=== PATIENT | female | born 1975 | race Caucasian/White ===

== ENCOUNTER 2018-12-07 10:45 | Outpatient (RCR) | payer OTHER ==
[~2018-12-07 10:45] MED LIST: CIPRO; CIPRO 250MG TA250 MG; FLOMAX 0.40.4 MG/CAP PO; MICARDIS40 MG PO; PERC2.5TAB; PERCOCET; ZOFRAN 4MG T4 MG/TAB
== END 2019-02-02 | disposition home or self-care (01) ==
LOC: WSPT
DX: E88.2 Lipomatosis, not elsewhere classified (principal); G89.4 Chronic pain syndrome

== ENCOUNTER 2021-06-01 08:46 | Outpatient (RCR) | payer OTHER | END 2021-06-21 08:37 | disposition home or self-care (01) | LOC: WSPT 08:46 | DX: M54.9 Dorsalgia, unspecified (principal) ==

== ENCOUNTER 2024-08-11 15:36 | Emergency (ER) | payer SELFPAY ==
[~2024-08-11] VITALS: Ht 175.3 cm; Wt 127.3 kg
[2024-08-11 15:41] VITALS: TEMP 98.6
[2024-08-11 19:07] LABS: BASO % 0.3 % (0.0-2.0); EOS % 0.4 % (0.0-4.0); GRAN # 5.2 K/mm3 (1.4-6.5); GRAN % 68.8 % (42.2-75.2); HEMOGLOBIN 14.4 g/dl (12.5-16.0); LYMPH # 1.9 K/mm3 (1.2-3.4); LYMPH % 25.2 % (20.0-51.0); MEAN CELL VOLUME 93 fl (80.0-100.0); MEAN CORPUSCULAR HEMOGLOBIN 32 pg (27-31); MEAN CORPUSCULAR HGB CONC 34 g/dl (33.0-37.0); MEAN PLATELET VOLUME 9.5 fl (7.4-10.4); MONO # 0.4 K/mm3 (0.1-0.6); MONO % 4.9 % (1.7-9.3); PLATELET COUNT 294 K/mm3 (130-400); RED BLOOD COUNT 4.51 M/mm3 (4.10-5.30); REDCELL DISTRIBUTION WIDTH-CV 13.1 % (11.5-14.5)
[2024-08-11 19:23] LABS: ALBUMIN 3.5 g/dL (3.5-5.0); BILIRUBIN,TOTAL 0.6 mg/dL (0.2-1.2); CALCIUM 9.7 mg/dL (8.4-10.2); CREATININE, serum 0.88 mg/dL (0.57-1.11); POTASSIUM 3.9 mEq/L (3.5-4.5)
[2024-08-11 19:29] LABS: TROPONIN-I 0.03 ng/mL (0.00-0.033)
[2024-08-11] MEDS ORDERED: Iohexol 300 - 100 ML VIAL IV ONE (20:03)
[2024-08-11 21:01] VITALS: BP 138/96; PULSE 110
== END 2024-08-11 21:01 | disposition home or self-care (01) ==
LOC: COL.ER 15:36
PROVIDERS: Nurse Practitioner Primary Care
DX: R07.9 Chest pain, unspecified (principal); F17.200 Nicotine dependence, unspecified, uncomplicated
CPT/HCPCS: Q9967

== ENCOUNTER 2024-08-23 11:03 | Day surgery (SDC) | payer SELFPAY ==
[~2024-08-23] VITALS: Ht 175.3 cm; Wt 137.7 kg
[2024-08-23] VITALS (255 sets, daily range): BP systolic 117–153; BP diastolic 66–102; PULSE 73–110; TEMP 97.7–98.3; O2SAT 89–100
[~2024-08-23 11:03] MED LIST changes: -MICARDIS40 MG PO; +MICARDIS80 MG PO
[2024-08-23] MEDS ORDERED: 1/2 NS 1,000 ML IV SCH ×2 (11:30→16:30)
[2024-08-23 12:09] LABS: HEMATOCRIT 38.2 % (37.0-47.0); HEMOGLOBIN 13.1 g/dl (12.5-16.0); MEAN CELL VOLUME 92 fl (80.0-100.0); MEAN CORPUSCULAR HEMOGLOBIN 32 pg (27-31); MEAN CORPUSCULAR HGB CONC 34 g/dl (33.0-37.0); PLATELET COUNT 280 K/mm3 (130-400); RED BLOOD COUNT 4.16 M/mm3 (4.10-5.30); REDCELL DISTRIBUTION WIDTH-CV 13.3 % (11.5-14.5)
[2024-08-23 12:27] LABS: INR 1.2 (0.8-3.0); PROTHROMBIN TIME 12.7 SECONDS (9.7-12.8)
[2024-08-23 12:28] LABS: CALCIUM 9.3 mg/dL (8.4-10.2); CREATININE, serum 0.86 mg/dL (0.57-1.11); POTASSIUM 3.6 mEq/L (3.5-4.5)
[2024-08-23 12:30] LABS: PARTIAL THROMBOPLASTIN TIME 31.8 SECONDS (26.0-37.0)
[2024-08-23] MEDS ORDERED: IMDUR 30MG30 MG/TAB PO (12:35)
[2024-08-23] MEDS ORDERED: TIROSINT50 MC1 PO (12:36)
[2024-08-23] MEDS ORDERED: LIPITOR 40MG TA40 MG PO (12:36)
[2024-08-23] MEDS ORDERED: NIRAVAM0.5 MG PO (12:37)
[2024-08-23] MEDS ORDERED: LYRICA 50MG CAP50 MG PO (12:37)
[2024-08-23] MEDS ORDERED: TOPROL XL 25MG25 MG PO (12:38)
[2024-08-23] MEDS ORDERED: D3-5050000 IU PO (12:43)
[2024-08-23] MEDS ORDERED: ASPIRIN 81M81 MG/TA2 PO (12:43)
[2024-08-23] MEDS ORDERED: NITROSTAT0.4 MG/TAB SL (12:44)
[2024-08-23] MEDS ORDERED: ZANAFLEX2 MG PO (12:44)
[2024-08-23] MEDS ORDERED: ULTRAM 50MG TAB50 MG PO (12:45)
[2024-08-23] MEDS ORDERED: Verapamil 2.5 MG/ML 2 ML VIAL IA SCH (13:49)
[2024-08-23] MEDS ORDERED: Nitroglycerin 100 MCG/ML (Cath Lab) 10 ML VIAL IA SCH (13:50)
[2024-08-23] MEDS ORDERED: Heparin 1,000 UNITS/ML 10 ML Multi-Dose VIAL IA SCH (13:51)
[2024-08-23] MEDS ORDERED: Heparin 1,000 UNITS/ML 10 ML Multi-Dose VIAL IV SCH (13:52)
[2024-08-23] MEDS ORDERED: Midazolam 2 MG/2 ML VIAL IV SCH ×2 (13:58→15:45)
[2024-08-23] MEDS ORDERED: Bivalirudin 250 MG in NS 50 ML IV SCH ×2 (14:37→15:12)
[2024-08-23] MEDS ORDERED: Nitroglycerin/D5W 250 ML IV SCH ×2 (14:42→16:30)
[2024-08-23] MEDS ORDERED: Nitroglycerin 100 MCG/ML (Cath Lab) 10 ML VIAL INCOR SCH ×3 (15:10→15:48)
[2024-08-23] MEDS ORDERED: Ticagrelor 90 MG TAB PO SCH ×2 (15:44→21:00)
[2024-08-23] MEDS ORDERED: Bisacodyl 5 MG TAB PO PRN (15:45)
[2024-08-23] MEDS ORDERED: fentaNYL 50 MCG/ML 2 ML VIAL IV SCH (15:46)
[2024-08-23] MEDS ORDERED: Iohexol 350 - 100 ML VIAL INCOR ONE (15:47)
--- NOTE | 2024-08-23 16:13 | NUR ---
Lon is transferred to ICU [address] Zaidi. 4 drug eluting stents were placed. Please see merge document in paper chart for size and placement of these stents. Lon is awake and alert, tearful, with reg and unlabored respirations. She does continue to report some chest pressure, but states it is much better than it was during procedure. BS report and handoff of care to Ree RN in ICU.
[2024-08-23] MEDS ORDERED: tiZANidine 4 MG TAB PO PRN (16:30)
[2024-08-23] MEDS ORDERED: Acetaminophen 325 MG TAB PO PRN (16:30)
[2024-08-23] MEDS ORDERED: traMADol 50 MG TAB PO SCH (16:30)
[2024-08-23] MEDS ORDERED: Ondansetron 4 MG/2 ML VIAL IV PRN (16:30)
--- NOTE | 2024-08-23 19:15 | NUR ---
Received report from DARLINE Keenan. Pt is alert and resting in bed with family at bedside. Pt's vitals are stable at this time. Nitro and IVF's are running at this time. the radial band is on with all of the air in the band at this time. Will continue with pt care.
[2024-08-23] MEDS ORDERED: ALPRAZolam 0.5 MG TAB PO SCH (21:00)
[2024-08-23] MEDS ORDERED: Pregabalin 50 MG CAP PO SCH (21:00)
[2024-08-23] MEDS ORDERED: Atorvastatin 80 MG TAB PO SCH (21:00)
[2024-08-23] MEDS ORDERED: Melatonin 3 MG TAB PO PRN (21:00)
[2024-08-24] VITALS (539 sets, daily range): BP systolic 130–146; BP diastolic 84–102; PULSE 78–108; TEMP 98; O2SAT 89–100
[2024-08-24 05:23] LABS: BASO % 0.1 % (0.0-2.0); EOS % 0.5 % (0.0-4.0); GRAN # 5.6 K/mm3 (1.4-6.5); GRAN % 76.9 % (42.2-75.2); HEMOGLOBIN 12.2 g/dl (12.5-16.0); LYMPH # 1.3 K/mm3 (1.2-3.4); LYMPH % 17.6 % (20.0-51.0); MEAN CELL VOLUME 90 fl (80.0-100.0); MEAN CORPUSCULAR HEMOGLOBIN 32 pg (27-31); MEAN CORPUSCULAR HGB CONC 36 g/dl (33.0-37.0); MEAN PLATELET VOLUME 9.2 fl (7.4-10.4); MONO # 0.3 K/mm3 (0.1-0.6); MONO % 4.6 % (1.7-9.3); PLATELET COUNT 257 K/mm3 (130-400); RED BLOOD COUNT 3.83 M/mm3 (4.10-5.30); REDCELL DISTRIBUTION WIDTH-CV 13.3 % (11.5-14.5)
[2024-08-24 05:25] LABS: HEMATOCRIT 34.3 % (37.0-47.0)
[2024-08-24 05:44] LABS: CALCIUM 8.9 mg/dL (8.4-10.2); CREATININE, serum 0.82 mg/dL (0.57-1.11); POTASSIUM 3.5 mEq/L (3.5-4.5)
--- NOTE | 2024-08-24 05:52 | NUR ---
Pt had an uneventful night. Pt's vitals were stable throughout the night. Was able to get the TR band off around 0100 this morning. All 14 mls of air was removed over time by 0000. Pt denies CP and had a headache for about half of the night. Tylenol and tramadol was given and that didn't seem to help much. Nitro was stopped and the pt's headache started to go away. Pt has been getting up to the toilet frequently throughout the night. 1/2 NS is now off. So no drips and IVF's are running at this time. Pt denies CP and headache now. Pt is currently resting in bed with the call light within reach. Will give report to day shift nurse.
--- NOTE | 2024-08-24 08:30 | NUR ---
Patient awake and resting in bed; A&0 X 4 and in no distress. Denies any chest pain but does say that she just feels tired. VS stable and call light left within reach.
[2024-08-24] MEDS ORDERED: Influenza Virus Vaccine, Trivalent '24-25 0.5 ML SYRINGE IM SCH (09:00)
[2024-08-24] MEDS ORDERED: Telmisartan 80 MG **** subs to Losartan 100 MG PO SCH (09:00)
[2024-08-24] MEDS ORDERED: Isosorbide Mononitrate CR (24-HR) 30 MG TAB PO SCH (09:00)
[2024-08-24] MEDS ORDERED: amLODIPine 5 MG TAB PO SCH (09:00)
[2024-08-24] MEDS ORDERED: Losartan 50 MG TAB PO SCH (09:00)
--- NOTE | 2024-08-24 09:26 | NUR ---
rehabilitation worker spoke with Dr. Zaidi who will discharge pt today. MARS met with pt and her son, Alf [phone] to discuss intake information. She reports to live with her two sons, Alf and Abner [phone] in [place]. Pt sees LILIBETH Bassett for PCP needs and obtains medications from [facility] with no difficulties. She does not have health insurance and reports that she does picker packer all prescibed meds. SW provided [facility] card for her. Pt reports having gotten an FAA application and she has a CM in [place] that she will follow-up with to discuss Medicaid. Pt is independent with ADLS and uses a CPAP for DME. Pt does not have a DPOA-HC and was provided a copy as she states her other child is special needs. Discharge Plan: home
--- NOTE | 2024-08-24 09:41 | NUR ---
Staff gave patient handout that reviewed risk factors for heart disease. Covered applicable modifiable risk factors including the following: tobacco cessation, HTN, hyperlipidemia, diabetes, overweight/obesity, sedentary lifestyle, and stress/depression. Patient and staff also review unmonifiable risk factors that have contributed to CVD- stents. Patient verbalized understanding. Referral sent to [facility] with patient's permission.
[2024-08-24] MEDS ORDERED: BRILINTA90 MG PO (10:06)
[2024-08-24] MEDS ORDERED: NORVASC 5MG5 MG/TAB PO (10:07)
[2024-08-24] MEDS ORDERED: LIPITOR 80MG80 MG PO (10:07)
--- NOTE | 2024-08-24 10:33 | NUR ---
Initial visit attempt: Patient was with nurse but knew Library Director was available and thanked her for stopping by and offering God's blessings. Library Director left her card with Lon.
--- NOTE | 2024-08-24 12:00 | NUR ---
Discharge packet reviewed with patient and family. All questions and concerns addressed at this time. INT discontinued and patient escorted out to the ER entrance and departed with her .
== END 2024-08-24 12:00 | disposition home or self-care (01) ==
LOC: COL.CAR 11:03 → ICU 16:00 → COL.CAR 08-24 12:00
PROVIDERS: Internal Medicine Cardiovascular Disease
DX: I25.10 Atherosclerotic heart disease of native coronary artery without angina pectoris (principal); I10 Essential (primary) hypertension; G47.33 Obstructive sleep apnea (adult) (pediatric); Z79.899 Other long term (current) drug therapy; Z79.82 Long term (current) use of aspirin; I25.82 Chronic total occlusion of coronary artery
CPT/HCPCS: OP; C1725; C1769; C1874; C1887; C9600; C9601; J0583; J1644; J1920; J2250; J2305; J3010; Q9967